=== PATIENT | male | born 1995 ===

== ENCOUNTER 2018-08-05 23:32 | Emergency (ER) | payer SELFPAY ==
[2018-08-06 01:52] LABS: BASO % 0.2 % (0.0-2.0); EOS % 0.2 % (0.0-4.0); HEMOGLOBIN 15.9 g/dL (12.0-18.0); LYMPH # 1.1 K/uL (1.0-4.3); LYMPH % 9.5 % (20.0-40.0); MEAN CELL VOLUME 84.1 fl (80.0-94.0); MEAN CORPUSCULAR HEMOGLOBIN 28.4 pg (27.0-31.0); MEAN CORPUSCULAR HGB CONC 33.8 g/dL (33.0-37.0); MEAN PLATELET VOLUME 7.2 fl (7.2-11.7); MONO % 17.5 % (0.0-10.0); NEUT # 8.3 K/uL (1.8-7.0); NEUT % 72.6 % (50.0-75.0); NRBC % 0.2 % (0.0-0.0); PLATELET COUNT 197 K/uL (130-400); RBC 5.58 Mil/uL (4.40-5.90); RED CELL DISTRIBUTION WIDTH 13.3 % (11.5-14.5); WHITE BLOOD COUNT 11.4 K/uL (4.8-10.8)
[2018-08-06 02:06] LABS: BLOOD UREA NITROGEN 10 mg/dl (9-20); GFR NON-AFRICAN AMERICAN > 60
[2018-08-06 02:14] LABS: CK-MB 0.48 ng/mL (0.0-3.38)
--- NOTE | 2018-08-06 02:29 | ED PDOC ---
HPI: Influenza Time Seen by Provider: 08/06/18 00:49 Chief Complaint: Flu-like Symptoms Chief Complaint (Provider): Flu-like Symptoms History Per: Patient Exam Limitations: no limitations Symptoms include: fever Additional complaint(s):: 22 y/o male with no past medical history was brought to the ER for x3 days of fever body aches and headaches. Patient states he felt weak on his feet and fee ls in his legs as though he has been working out very intensely without having worked out. Patient did not get flu shot this year. Also complaining of sore throat. Patient denies any sick contacts. Past Medical History Reviewed: Historical Data, Nursing Documentation, Vital Signs Vital Signs: Last Vital Signs Temp 102.7 F H 08/06/18 00:08 Pulse 122 H 08/06/18 00:08 Resp 20 08/06/18 00:08 BP 124/83 08/06/18 00:08 Pulse Ox 98 08/06/18 00:08 - Medical History PMH: No Chronic Diseases - Surgical History Surgical History: No Surg Hx - Family History Family History: States: Unknown Family Hx - Home Medications Home Medications: Ambulatory Orders Medication Instructions Recorded Amoxicillin/Clavulanate [Augmentin 1 tab PO BID #14 tab 07/05/16 875 MG-125 MG] Promethazine HCl/Codeine 5 ml PO Q6 PRN #6 oz 07/05/16 [Prometh-Codein 6.25-10 mg/5 ml] - Allergies Allergies/Adverse Reactions: Allergies Allergy/AdvReac Type Severity Reaction Status Date / Time No Known Allergies Allergy Verified 07/04/16 23:09 Review of Systems ROS Statement: Except As Marked, All Systems Reviewed And Found Negative Constitutional: Positive for: Fever, Weakness, Malaise ENT: Positive for: Throat Pain Musculoskeletal: Positive for: Leg Pain Physical Exam - Reviewed Nursing Documentation Reviewed: Yes Vital Signs Reviewed: Yes - Physical Exam Appears: Positive for: Well, Non-toxic, No Acute Distress Head Exam: Positive for: ATRAUMATIC, NORMAL INSPECTION, NORMOCEPHALIC Skin: Positive for: Warm (warm to touch), Diaphoresis Eye Exam: Positive for: EOMI, Normal appearance, PERRL ENT: Positive for: Pharyngeal Erythema (tonsillar erythema). Negative for: Tonsillar Exudate Neck: Positive for: Normal, Painless ROM Cardiovascular/Chest: Positive for: Regular Rate, Rhythm, Tachycardia. Negative for: Murmur Respiratory: Positive for: CNT, Normal Breath Sounds Gastrointestinal/Abdominal: Positive for: Normal Exam, Soft. Negative for: Tenderness Back: Positive for: Normal Inspection Extremity: Positive for: Normal ROM. Negative for: Pedal Edema, Deformity Neurological/Psych: Positive for: Awake, Alert, Normal Tone. Negative for: Motor/Sensory Deficits Medical Decision Making Medical Decision Making: Time: 01:28 A/P: 22 y/o with fever. Viral illness vs influenza vs strep * Labs * IV Fluids * Toradol * Tylenol 650 mg * Influenza * RSV 04:17 Patient's vitals have improved and will be discharged home. Return parameters discussed. Patient advised to follow up with PMD. Very well appearing upon di miguel angel. Scribe Attestation: Documented by Srini Ashford, acting as a scribe Terrell Fulton MD. Provider Scribe Attestation: All medical record entries made by the Scribe were at my direction and personally dictated by me. I have reviewed the chart and agree that the record accurately reflects my personal performance of the history, physical exam, medical decision making, and the department course for this patient. I have also personally directed, reviewed, and agree with the discharge instructions and disposition. - Laboratory Results Result Diagrams: 08/06/18 01:41 08/06/18 01:41 - ECG O2 Sat by Pulse Oximetry: 98 Disposition - Clinical Impression Clinical Impression: Upper respiratory infection - Patient ED Disposition Is Patient to be Admitted: No - Disposition Referrals: [facility] [place] [Outside] Disposition: Routine/Home Disposition Time: 04:17 Condition: IMPROVED Additional Instructions: IRENA VIDAL, thank you for letting us take care of you today. Your provider was David Fulton MD and you were treated for FEVER, HEAD, BODY PAIN. The emergency medical care you received today was directed at your acute symptoms. If you were prescribed any medication, please fill it and take as directed. It may take several days for your symptoms to resolve. Return to the Emergency Department if your symptoms worsen, do not improve, or if you have any other problems. Please contact your doctor or call one of the physicians/clinics you have been referred to that are listed on the Patient Visit Information form that is included in your discharge packet. Bring any paperwork you were given at discharge with you along with any medications you are taking to your follow up visit. Our treatment cannot replace ongoing medical care by a primary care provider outside of the emergency department. Thank you for allowing the [facility] team to be part of your care today. If you had an X-Ray or CT scan: A Radiologist will review the ED reading if any change in treatment is needed we will contact you. If you had a blood, urine, or wound culture: It will take several days for the results, if any change in treatment is needed we will contact you. If you had an STI test: It will take 48 hours for the results. Please call after 1 week if you have not heard back. Instructions: Viral Upper Respiratory Infection, Adult (DC) Forms: [employer] (Khmer), [facility] ED School/Work Excuse Print Language: GREEK
[2018-08-06] MEDS: Sodium Chloride 0.9% 1,000 ML IV STA (02:45)
[2018-08-06 03:17] LABS: BANDS 2 % (0-2); EOSINOPHIL 1 % (0-7); LYMPHOCYTE 9 % (20-50); MONOCYTE 16 % (0-10); NEUTROPHIL 72 % (42-75); PLATELET ESTIMATE NORMAL (NORMAL); TOTAL CELLS COUNTED 100
[2018-08-06 03:51] VITALS: BP 123/66; PULSE 90; RESP 11; TEMP 99.1
[2018-08-06 04:18] VITALS: O2SAT 98
== END 2018-08-06 03:58 | disposition home or self-care (01) ==
LOC: H.ER 23:32
DX: J06.9 Acute upper respiratory infection, unspecified (principal)
CPT/HCPCS: 80048; 82553; 83605; 85025; 87070; 87430; 87804; 96374; 99283; J1885; J7030